=== PATIENT | female | born 1970 | race Caucasian/White ===

== ENCOUNTER 2019-10-27 13:04 | Observation (INO) ==
[2019-10-27] MEDS ORDERED: Clindamycin 900 MG/50 ML 900 MG/50 ML IV.SOLN IVPB ONE (13:31)
[2019-10-27] MEDS ORDERED: *HR* OxyCODONE ER (12 HR) 10 MG TABLET PO ONE (13:38)
[2019-10-27] MEDS ORDERED: Ondansetron 4 MG/2 ML VIAL IVP ONE (13:38)
[2019-10-27] MEDS ORDERED: Gabapentin 300 MG CAPSULE PO ONE (13:38)
[2019-10-27] MEDS ORDERED: *HR* OxyCODONE Immed Rel 5 MG TABLET PO PRN (13:38)
[2019-10-27] MEDS ORDERED: Ringers Solution, Lactated 1,000 ML IVC SCH (13:45)
[2019-10-27] MEDS ORDERED: *HR* Propofol 200 MG/20 ML VIAL IVP ONE (14:01)
[2019-10-27] MEDS ORDERED: Ondansetron 4 MG/2 ML VIAL ONE (14:01)
[2019-10-27] MEDS ORDERED: Dexamethasone 4 MG/ML VIAL ONE (14:01)
[2019-10-27] MEDS ORDERED: Lidocaine -MPF 2% 2 ML VIAL ONE (14:01)
[2019-10-27] MEDS ORDERED: Tranexamic Acid 1,000 MG/10 ML VIAL ONE (14:10)
[2019-10-27] MEDS ORDERED: *HR* FentaNYL (PF) 100 MCG/2 ML VIAL ONE (14:17)
[2019-10-27] MEDS ORDERED: *HR* Midazolam HCl 2 MG/2 ML VIAL ONE (14:17)
[2019-10-27] MEDS ORDERED: Ropivacaine/PF 0.5% 30 ML VIAL ONE (14:39)
[2019-10-27] MEDS ORDERED: Vancomycin 1,000 MG VIAL ONE (14:46)
[2019-10-27] MEDS ORDERED: Ethanol\\Acetic Acid\\Na Ace\\Ben 1,000 ML IRRIG.SOLN IR ONE (14:46)
[2019-10-27] MEDS ORDERED: Total Joint Mixture (50 ml) INTRAART ONE (15:25)
[2019-10-27] MEDS ORDERED: Ketorolac 30 MG/ML VIAL ONE (15:53)
[2019-10-27] MEDS: *HR* HYDROmorphone PF 0.5 MG/0.5 ML SYRINGE IVP PRN ×2 (17:00→17:10)
[2019-10-27] MEDS ORDERED: *HR* Midazolam HCl 2 MG/2 ML VIAL IVP PRN (17:24)
[2019-10-27 17:53] LABS: Hematocrit 38.9 % (35.3-44.9)
[2019-10-27] MEDS ORDERED: *HR* Promethazine 25 MG/ML VIAL IVP PRN (18:38)
[2019-10-27] MEDS ORDERED: Clindamycin 900 MG/50 ML 900 MG/50 ML IV.SOLN IVPB SCH (18:38)
[2019-10-27] MEDS ORDERED: Dextrose Gel 15 GM/37.5 ML TUBE PO PRN ×2 (18:38)
[2019-10-27] MEDS ORDERED: Ibuprofen 800 MG TABLET PO PRN (18:38)
[2019-10-27] MEDS ORDERED: Naloxone 0.4 MG/ML INJ IVP PRN (18:38)
[2019-10-27] MEDS ORDERED: D5% in Water 1,000 ML IVC PRN (18:38)
[2019-10-27] MEDS ORDERED: Sennosides 8.6 MG TABLET PO PRN (18:38)
[2019-10-27] MEDS ORDERED: Ondansetron 4 MG/2 ML VIAL IVP PRN (18:38)
[2019-10-27] MEDS ORDERED: METRONIDAZOLE APPL TP PRN (18:38)
[2019-10-27] MEDS ORDERED: *HR* Dextrose 50 % in Water (Vial) 50 ML VIAL IVP PRN (18:38)
[2019-10-27] MEDS ORDERED: MOM Conc 10 ML UD.LIQ PO PRN (18:38)
[2019-10-27] MEDS: Ringers Solution, Lactated 1,000 ML IVC SCH (20:54)
[2019-10-27] MEDS: Insulin LISPRO 300 UNITS/3 ML VIAL SQ SCH ×2 (21:00→22:32)
[2019-10-27] MEDS: Ascorbic Acid 500 MG TABLET PO SCH (21:00)
[2019-10-27] MEDS: *HR* OxyCODONE Immed Rel 5 MG TABLET PO PRN (22:33)
[2019-10-28 02:24] LABS: Basophils % 0.2 %; Hematocrit 37.4 % (35.3-44.9); Hemoglobin 12.4 g/dL (11.5-15.4); Immature Granulocytes % 0.5 % (0-4); Lymphocytes # 1.7 K/mcL (0.6-4.6); Lymphocytes % 13.7 %; Mean Corpuscular HGB Conc 33.2 g/dL (31.6-35.5); Mean Corpuscular Hemoglobin 30.5 pg (28.0-33.3); Mean Corpuscular Volume 92.1 fL (83.0-100.0); Mean Platelet Volume 10.2 fL (9.4-12.4); Monocytes # 0.2 K/mcL (0.0-1.3); Monocytes % 1.4 %; Neutrophils # 10.1 K/mcL (1.6-8.9); Platelet Count 191 K/mcL (140-400); Red Blood Count 4.06 M/mcL (3.82-4.97); Red Cell Distribution Width 11.6 % (11.5-14.5); Segmented Neutrophils % 84.2 %; White Blood Count 12.1 K/mcL (4.3-11.1)
[2019-10-28 02:42] LABS: BUN/Creatinine Ratio 19 (6-26); Blood Urea Nitrogen 16 mg/dL (6-20); Calcium 8.4 mg/dL (8.6-10.3); Carbon Dioxide 23 mEq/L (23-29); Chloride 99 mEq/L (98-107); Glucose 170 mg/dL (70-105); Osmolality,Calculated 281 (280-300); Potassium 4.3 mEq/L (3.5-5.1); Sodium 133 mEq/L (136-145); eGFR For African Americans > 60 (> 60); eGFR For Non-African Americans > 60 (> 60)
[2019-10-28] MEDS: Clindamycin 900 MG/50 ML 900 MG/50 ML IV.SOLN IVPB SCH ×2 (03:24→09:27)
[2019-10-28] MEDS: *HR* OxyCODONE Immed Rel 5 MG TABLET PO PRN ×5 (03:26→23:12)
[2019-10-28] MEDS ORDERED: *HR* Enoxaparin 30 MG/0.3 ML SYRINGE SQ SCH (08:45)
[2019-10-28] MEDS: estradioL 1 MG TABLET PO SCH (09:25)
[2019-10-28] MEDS: Loratadine 10 MG TABLET PO SCH (09:25)
[2019-10-28] MEDS: PARoxetine 30 MG TABLET PO SCH (09:26)
[2019-10-28] MEDS: Ascorbic Acid 500 MG TABLET PO SCH ×2 (09:26→16:21)
[2019-10-28] MEDS: Multivit/Ca/Min/Fe/FA 1 TAB TABLET PO SCH (09:26)
[2019-10-28] MEDS: Metoprolol XL (24 HR) Succ 25 MG TAB.ER.24H PO SCH (09:26)
[2019-10-28] MEDS: Insulin LISPRO 300 UNITS/3 ML VIAL SQ SCH ×4 (09:29→20:30)
[2019-10-28] MEDS: *HR* Rivaroxaban 10 MG TABLET PO SCH (12:05)
[2019-10-28] MEDS ORDERED: Aspirin Enteric Coated 81 MG Tablet PO SCH (15:34)
[2019-10-28] MEDS: Ringers Solution, Lactated 1,000 ML IVC SCH (16:22)
[2019-10-28] MEDS: HYDROcodone BIT/Homatropine 5 MG TABLET PO PRN (20:30)
[2019-10-29] MEDS: HYDROcodone BIT/Homatropine 5 MG TABLET PO PRN ×4 (02:05→22:59)
[2019-10-29] MEDS: *HR* OxyCODONE Immed Rel 5 MG TABLET PO PRN ×4 (05:43→20:33)
[2019-10-29] MEDS: *HR* Rivaroxaban 10 MG TABLET PO SCH (05:43)
[2019-10-29] MEDS: Insulin LISPRO 300 UNITS/3 ML VIAL SQ SCH ×4 (07:40→20:34)
[2019-10-29] MEDS: estradioL 1 MG TABLET PO SCH (09:02)
[2019-10-29] MEDS: Ascorbic Acid 500 MG TABLET PO SCH ×2 (09:03→15:48)
[2019-10-29] MEDS: Loratadine 10 MG TABLET PO SCH (09:03)
[2019-10-29] MEDS: Multivit/Ca/Min/Fe/FA 1 TAB TABLET PO SCH (09:03)
[2019-10-29] MEDS: PARoxetine 30 MG TABLET PO SCH (09:03)
[2019-10-29] MEDS: Metoprolol XL (24 HR) Succ 25 MG TAB.ER.24H PO SCH (09:04)
[2019-10-29 10:41] LABS: Basophils % 0.4 %; Eosinophils # 0.3 K/mcL (0.0-0.6); Eosinophils % 3.1 %; Hematocrit 35.6 % (35.3-44.9); Hemoglobin 11.4 g/dL (11.5-15.4); Immature Granulocytes % 0.4 % (0-4); Lymphocytes # 3.1 K/mcL (0.6-4.6); Lymphocytes % 32.6 %; Mean Corpuscular Hemoglobin 29.9 pg (28.0-33.3); Mean Corpuscular Volume 93.4 fL (83.0-100.0); Monocytes # 0.6 K/mcL (0.0-1.3); Monocytes % 6.1 %; Neutrophils # 5.4 K/mcL (1.6-8.9); Platelet Count 194 K/mcL (140-400); Red Blood Count 3.81 M/mcL (3.82-4.97); Red Cell Distribution Width 11.9 % (11.5-14.5); Segmented Neutrophils % 57.4 %; White Blood Count 9.5 K/mcL (4.3-11.1)
[2019-10-29 11:00] LABS: BUN/Creatinine Ratio 16 (6-26); Blood Urea Nitrogen 13 mg/dL (6-20); Calcium 8.5 mg/dL (8.6-10.3); Carbon Dioxide 28 mEq/L (23-29); Chloride 103 mEq/L (98-107); Glucose 136 mg/dL (70-105); Osmolality,Calculated 288 (280-300); Potassium 3.9 mEq/L (3.5-5.1); Sodium 138 mEq/L (136-145); eGFR For African Americans > 60 (> 60); eGFR For Non-African Americans > 60 (> 60)
[2019-10-30] MEDS: *HR* OxyCODONE Immed Rel 5 MG TABLET PO PRN ×4 (02:42→16:45)
[2019-10-30] MEDS: *HR* Rivaroxaban 10 MG TABLET PO SCH (06:05)
[2019-10-30] MEDS: HYDROcodone BIT/Homatropine 5 MG TABLET PO PRN ×2 (06:05→15:27)
[2019-10-30] MEDS ORDERED: Ketorolac 30 MG/ML VIAL IVP PRN (07:48)
[2019-10-30] MEDS: Multivit/Ca/Min/Fe/FA 1 TAB TABLET PO SCH (07:59)
[2019-10-30] MEDS: PARoxetine 30 MG TABLET PO SCH (07:59)
[2019-10-30] MEDS: Loratadine 10 MG TABLET PO SCH (07:59)
[2019-10-30] MEDS: estradioL 1 MG TABLET PO SCH (08:00)
[2019-10-30] MEDS: Insulin LISPRO 300 UNITS/3 ML VIAL SQ SCH ×3 (08:00→17:15)
[2019-10-30] MEDS: Ascorbic Acid 500 MG TABLET PO SCH (08:00)
[2019-10-30] MEDS: Metoprolol XL (24 HR) Succ 25 MG TAB.ER.24H PO SCH (08:01)
[2019-10-30 10:52] VITALS: BP 134/86
[2019-10-30] MEDS: Ringers Solution, Lactated 1,000 ML IVC SCH (13:59)
== END 2019-10-30 18:05 | disposition home health service (06) ==
LOC: 3NENU 13:04 → SAMDAY 13:04 → 3NENU 18:28
PROVIDERS: ADMIT Orthopaedic Surgery; ATTEND Orthopaedic Surgery